=== PATIENT | male | born 1990 | race Two or more races ===

== ENCOUNTER 2019-10-10 17:51 | Emergency (ER) | payer MEDICAID ==
[~2019-10-10] VITALS: Ht 144.8 cm; Wt 70.0 kg
[2019-10-10] MEDS ORDERED: IBUPROFEN 600MG TABLET PO ONE (20:45)
[2019-10-10 22:50] VITALS: BP 111/74
== END 2019-10-10 22:54 | disposition home or self-care (01) ==
LOC: ER 17:51
DX: S62.306A Unspecified fracture of fifth metacarpal bone, right hand, initial encounter for closed fracture (principal); M79.641 Pain in right hand; E11.9 Type 2 diabetes mellitus without complications; X58.XXXA Exposure to other specified factors, initial encounter; Y93.89 Activity, other specified; Y92.9 Unspecified place or not applicable
CPT/HCPCS: 29125; 73130; 99283